=== PATIENT | female | born 1985 | race Caucasian/White ===

== ENCOUNTER 2023-04-03 19:48 | Emergency (ER) | payer BC ==
[~2023-04-03] VITALS: Ht 167.6 cm; Wt 90.7 kg
[2023-04-03 20:20] VITALS: BP 125/73; TEMP 98.9
--- NOTE | 2023-04-03 20:36 | NUR ---
PAGED DR ARREOLA FOR NEURO CONSULT
[2023-04-03] MEDS ORDERED: HYDR-4303 PO (21:00)
[2023-04-03] MEDS ORDERED: TRIF7.5D5 RIGHTEYE ×2 (21:00→21:16)
[2023-04-03] MEDS ORDERED: VALA100026 PO ×2 (21:00→21:16)
--- NOTE | 2023-04-03 21:15 | NUR ---
Patient discharged to home in stable condition. Rx and Written and verbal after care instructions given. Patient verbalizes understanding of instruction.
[2023-04-03] MEDS ORDERED: HYDR-3980 PO (21:16)
[2023-04-03] MEDS ORDERED: TRAM50TA2 PO (22:05)
[2023-04-03] MEDS ORDERED: GANC5GEL2 RIGHTEYE (22:05)
[2023-04-05] MEDS ORDERED: ONDA4TAB5 PO (12:35)
[2023-04-05] MEDS ORDERED: ERYT3.5O9 EACHEYE (12:42)
== END 2023-04-03 21:59 | disposition home or self-care (01) ==
LOC: ER 19:52
DX: B02.31 Zoster conjunctivitis (principal); G35 Multiple sclerosis